=== PATIENT | female | born 1950 | race Caucasian/White ===

== ENCOUNTER 2017-06-04 14:50 | Emergency (ER) | payer BC ==
[~2017-06-04] VITALS: Ht 170.2 cm; Wt 132.0 kg
[2017-06-04 16:11] VITALS: BP 170/130; PULSE 92; RESP 16; TEMP 98; O2SAT 94
--- NOTE | 2017-06-04 17:00 | RADRPT ---
EXAM DATE/TIME: 06/04/2017 16:23 [facility] COMPARISON: No previous studies available for comparison. INDICATIONS : Left ankle pain. MEDICAL HISTORY : None. SURGICAL HISTORY : None. ENCOUNTER: Initial ACUITY: 1 day PAIN SCORE: 7/10 LOCATION: Left ankle FINDINGS: Fracture involving the distal left lateral malleolus. Associated overlying soft tissue swelling. The talar dome is intact. Remaining visualized osseous structures are intact. Joint spaces are maintained . CONCLUSION: 1. Distal left lateral malleolus fracture. Chilo Mcgill MD on June 04, 2017 at 16:58 Board Certified Radiologist. This report was verified electronically.
--- NOTE | 2017-06-04 17:02 | RADRPT ---
EXAM DATE/TIME: 06/04/2017 16:28 [facility] COMPARISON: No previous studies available for comparison. INDICATIONS : Left foot pain. MEDICAL HISTORY : None. SURGICAL HISTORY : None. ENCOUNTER: Initial ACUITY: 1 day PAIN SCORE: 4/10 LOCATION: Left foot. FINDINGS: Two view examination of the left foot demonstrates no soft tissue swelling, dislocation, or fracture. The calcaneus is intact. Bony mineralization is normal. CONCLUSION: 1. No acute fracture or dislocation. Chilo Mcgill MD on June 04, 2017 at 16:59 Board Certified Radiologist. This report was verified electronically.
--- NOTE | 2017-06-04 17:17 | RADRPT ---
EXAM DATE/TIME: 06/04/2017 16:37 [facility] COMPARISON: No previous studies available for comparison. INDICATIONS : Right shoulder pain. MEDICAL HISTORY : None. SURGICAL HISTORY : None. ENCOUNTER: Initial ACUITY: 1 day PAIN SCORE: 3/10 LOCATION: Right shoulder. FINDINGS: There are degenerative changes evident. Alignment is anatomic. Lung apex is clear. No fracture. CONCLUSION: Degenerative changes, no fracture. Nikos Bernal MD FACR on June 04, 2017 at 17:14 Board Certified Radiologist. This report was verified electronically.
--- NOTE | 2017-06-04 18:06 | PD ---
HPI Chief Complaint: Fall Time Seen by Provider: 17:55 Travel History International Travel<30 days: No Contact w/Intl Traveler<30days: No Traveled to known affect area: No History of Present Illness HPI Patient comes into the emergency department complaining of left ankle and right elbow pain status post fall. Patient felt like her left ankle gave out on her causing her to fall and landing on her right elbow. Patient complaining of throbbing aching-like pain in the lateral aspect of her left ankle and in the lateral aspect of her right elbow. Patient denies hitting her head or loss of consciousness. Patient denies doing anything for this prior to coming to the emergency department. Patient has had ice applied to affected areas with minimal relief. Pain is worse with standing and certain movement. Patient denies any radiation of the pain. PFSH Past Medical History Thyroid Disease: Yes Social History Tobacco Use: No Substance Use: No Allergies-Medications (Allergen,Severity, Reaction): Coded Allergies: codeine (Verified Allergy, Unknown, 06/04/17) morphine (Verified Allergy, Unknown, 06/04/17) Reported Meds & Prescriptions Reported Meds & Active Scripts Active Tramadol (Tramadol HCl) 50 Mg Tab 50 Mg PO Q8H PRN Review of Systems Except as stated in HPI: all other systems reviewed are Neg Physical Exam Narrative GENERAL: Well-developed, overly nourished, in no acute distress, and non-ill appearing. SKIN: Focused skin assessment warm and dry. HEAD: Atraumatic. Normocephalic. EYES: Pupils equal and round. EOMI. No scleral icterus. No injection or drainage. ENT: No nasal bleeding or discharge. Mucous membranes pink and moist. NECK: Trachea midline. Supple. No nuclear rigidity. CARDIOVASCULAR: Radial and dorsal pulses 2+, intact, and equal bilaterally. Capillary refill is 2 seconds. RESPIRATORY: No accessory muscle use. No respiratory distress. MUSCULOSKELETAL: No obvious deformities. No clubbing. No cyanosis. No edema. Decreased range of motion left ankle secondary to pain. Elbow : FROM and strength equal BL with passive flexion, extension, and pronation/supination. No laxity noted with varus and valgus maneuvers. Pulses equal BL distal to injury. Capillary refill less than 2 seconds distal to injury and equal BL. FROM distal to injury and equal BL. Strength distal to injury equal BL. NV intact distal to injury and equal BL. Flexion and extension of thumb equal BL. Equal strength and movement with abduction/adductions of BL fingers. Director Treasurer strength equal BL. Ankle: Neagative anterior draw and Mittal test. Negative Andre's sign. No laxity noted with passive inversion and eversion of BL ankles. Negative squeeze test. Pulses equal BL distal to injury. Capillary refill less than 2 seconds distal to injury and equal BL. Sensation equal BL 1st web space. FROM of toes distal to injury and equal BL. NV intact distal to injury and equal BL. Dorsal pulses equal BL. Patient reports as palpation over anterolateral aspect of left ankle and lateral epi condyle right upper extremity. NEUROLOGICAL: Awake and alert. No obvious cranial nerve deficits. Motor grossly within normal limits. Normal speech. PSYCHIATRIC: Appropriate mood and affect; insight and judgment normal. Data Data Last Documented VS Vital Signs Date Time Temp Pulse Resp B/P (MAP) Pulse Ox O2 Delivery O2 Flow Rate FiO2 06/04/17 19:03 06/04/17 19:01 93 20 96 06/04/17 16:11 98.0 Orders Orders Ankle, Complete ([id number]) (06/04/17 15:47) Foot, Limited (2vws) (06/04/17 15:47) Shoulder, Complete (>2vws) (06/04/17 15:47) Elbow, Complete (4 Vws) (06/04/17 ) Splint Or Brace Apply/Monitor (06/04/17 18:25) Fiberglass Sugartong Sp Ad Sl (06/04/17 ) Fiberglass Short Leg Splint Ad (06/04/17 ) [facility] Medical Decision Making Medical Screen Exam Complete: Yes Emergency Medical Condition: Yes Interpretation(s) Left ankle x-ray read by the radiologist shows: Distal left lateral malleolus fracture. Left foot x-ray read by the radiologist shows: No acute fracture or dislocation. Right shoulder x-ray read by the radiologist shows: Degenerative changes, no fracture. Right elbow x-ray read by radiologist shows: 1. Soft tissue swelling without definite fracture. 2. Small ossified density seen adjacent to the olecranon likely related to old avulsion fracture. Differential Diagnosis Fracture, strain, contusion, dislocation, other Narrative Course The patient sustained a fracture of the left ankle. The distal extremity appears neurovascularly intact, without evidence of neurovascular injury nor compartment syndrome. Tendon exam also was intact. The effected limb was splinted. The patient was discharged on pain medication along with fracture and splint care instructions and given warnings for vascular compromise. The patient is to follow up with Orthopedics. The patient agrees with plan. The patient appears to have suffered a contusion of the right elbow. There is no clinical evidence to suspect bony injury by exam. Radiographic examination revealed no fracture seen at this time. The patient has full range of motion on active and passive motions. There is no significant edema. There is no proximal or distal joint effusion. The distal extremity appears neurovascularly intact, without evidence of neurovascular injury nor compartment syndrome. Tendon exam also was intact. The patient was discharged on pain medication instructions and given warnings for vascular compromise. The patient is to follow up with their regular physician or Orthopedics. The patient agrees with plan. Patient in no obvious distress upon re-evaluation. All pertinent Radiology result(s) discussed with patient. Discussed patient with Dr. Cee prior to discharge, who is in agreement with plan of care and disposition. Any questions /concerns in reference to patient diagnosis/condition discussed and clarified prior to patient's discharge. Reinforced sheer importance of close follow up with patient's primary physician or primary care clinic and orthopedics. Instructed patient to return to ED immediately, if symptoms return/worsen. Pt showed understanding of above instructions. Further instructions and recommendations were detailed in discharge paperwork. Pt ambulated without difficulty out of ED at discharge. Diagnosis Primary Impression: Closed fracture of left lateral malleolus Qualified Codes: S82.65XA - Nondisplaced fracture of lateral malleolus of left fibula, initial encounter for closed fracture Additional Impressions: Contusion of right elbow, initial encounter Fall Qualified Codes: W19.XXXA - Unspecified fall, initial encounter Referrals: Bradly Adams MD Patient Instructions: Ankle Fracture (ED), Contusion in Adults (ED), Fall Prevention (ED), General Instructions, How to Use a Sling (GEN), Splint Care (ED ) Additional Instructions: Follow-up with orthopedics this week for reevaluation. Take all medication as prescribed. Nonweightbearing left lower extremity until evaluated by orthopedics. Use a wheelchair or walker for mobility. Use [id number] Tylenol for additional pain control. Follow instructions on the packaging. Apply ice to affected area 20 minutes per hour as needed for pain. Return to the emergency department if symptoms get worse. Med/Other Pt SpecificInfo: Prescription(s) given Scripts Tramadol (Tramadol) 50 Mg Tab 50 MG PO Q8H Y for PAIN GREATER THAN 7, #9 TAB 0 Refills Prov: Hesham Cee MD 06/04/17 Disposition: 01 DISCHARGE HOME Condition: Stable Kole Henson Jun 04, 2017 18:06
--- NOTE | 2017-06-04 18:16 | RADRPT ---
EXAM DATE/TIME: 06/04/2017 18:00 [facility] COMPARISON: No previous studies available for comparison. INDICATIONS : Right elbow pain; fell today. MEDICAL HISTORY : None. SURGICAL HISTORY : None. ENCOUNTER: Initial ACUITY: 1 day PAIN SCORE: 7/10 LOCATION: Right elbow. FINDINGS: Multiple view examination of the right elbow demonstrates soft tissue swelling. No definite joint eff usion. Small ossified density adjacent to the olecranon seen on lateral view. Bony mineralization is normal. CONCLUSION: 1. Soft tissue swelling without definite fracture. 2. Small ossified density seen adjacent to the olecranon likely related to old avulsion fracture. Burke Vences MD on June 04, 2017 at 18:13 Board Certified Radiologist. This report was verified electronically.
[2017-06-04] MEDS ORDERED: TRAM50TA PO (18:36)
[2017-06-04 19:01] VITALS: BP 153/93; PULSE 93; RESP 20; O2SAT 96
== END 2017-06-04 19:53 | disposition home or self-care (01) ==
LOC: PHED 14:50
DX: S82.65XA Nondisplaced fracture of lateral malleolus of left fibula, initial encounter for closed fracture (principal); S50.01XA Contusion of right elbow, initial encounter; W19.XXXA Unspecified fall, initial encounter; E07.9 Disorder of thyroid, unspecified
CPT/HCPCS: 29515; 73030; 73080; 73610; 73620